=== PATIENT | female | born 2000 | race Hispanic/Latino ===

== ENCOUNTER 2021-12-03 15:23 | Emergency (ER) | payer OTHER, BC, SELFPAY ==
--- NOTE | ~2021-12-03 | XR_ITS ---
EXAMINATION: XR abdomen/kub 1V DATE: 12/03/2021 17:31 INDICATION: Abdominal distention. TECHNIQUE: A supine view of the abdomen on 2 radiographs was obtained. COMPARISON: None. FINDINGS: There are no dilated loops of bowel. There is a moderate volume of stool in the colon. Ther e is a 3 mm stone in right kidney. IMPRESSION: 1. Normal bowel gas pattern. 2. 3 mm right kidney stone. Reviewed, dictated and finalized at location A.
[2021-12-03 15:26] VITALS: BP 163/91; PULSE 95; RESP 20; TEMP 36.6; O2SAT 98
[2021-12-03 15:41] LABS: Hematocrit 42.5 % (37.0-47.0); Hemoglobin 14.1 g/dL (12.0-15.0); Mean Corpuscular HGB Conc 33.2 g/dl (32-36); Mean Corpuscular Hemoglobin 30.6 pg (26-34); Mean Corpuscular Volume 92.2 fl (80-100); Platelet Count Result 305 k/mm3 (150-375); Red Blood Count 4.61 M/mm3 (4.2-5.4); Red Cell Distribution Width 12.6 % (11.5-14.5); White Blood Count 10.6 K/mm3 (4.5-10.0)
[2021-12-03 15:48] LABS: Add Urine Microscopic? YES; Appearance Urine Clear (Clear); Bacteria Urine Trace /hpf; Bilirubin Urine Negative (Negative); Blood Urine 1+ (Negative); Color Urine Straw (Yellow); Glucose Urine UA Negative (Negative); Ketones Urine Negative (Negative); Leukocyte Esterase Ur Negative LEU/UL (Negative); Mucus Urine Rare /lpf; Nitrate Urine Negative (Negative); Protein Urine Negative (Negative); RBC Urine 0-2 /hpf (0-2); Squamous Epithelial Cell Urine Few /hpf (Few); Urobilinogen Urine Negative mg/dL (<2.0); WBC Urine 0-3 /hpf
[2021-12-03 15:50] LABS: Alanine Aminotransferase 31 U/L (6-35); Albumin Level 4.5 g/dL (3.5-5.1); Alkaline Phosphatase 86 U/L (38-126); Anion Gap 13 mmol/L (8-16); Aspartate Amino Transferase 28 U/L (14-36); Bilirubin,Total 0.5 mg/dL (0.2-1.3); Blood Urea Nitrogen 10 mg/dL (7-17); Calcium 8.9 mg/dL (8.4-10.2); Carbon Dioxide 22 mmol/L (22-30); Chloride 104 mmol/L (98-107); Estimated CRCL calculation 172 ml/min; Estimated Glomerular Filt Rate > 60; Glucose 177 mg/dL (65-110); Lipase 116 U/L (23-300); Sodium 139 mmol/L (137-145)
[2021-12-03 15:56] LABS: Specific Grav Ur 1.004 (1.001-1.035)
--- NOTE | 2021-12-03 16:14 | ED.GENADULT ---
HPI - General Adult General Chief complaint: MILL TENDER Stated complaint: abd pain Time Seen by Provider: 12/03/21 15:56 History of Present Illness HPI narrative: 21-year-old female with no medical problems presents to the emergency room for quivery: . Patient states that she has been experiencing lower abdominal spasming intermittently since 7:00 this morning. Patient called her primary care physician and she was told to come in because she might be having an ectopic . Patient's last menstrual cycle was 2 weeks ago. Denies any vaginal bleeding. Denies back pain. To go home this morning and it was negative. Patient denies nausea, vomiting, diarrhea or constipation. Denies fevers denies concerns or STIs. Related Data Home Medications Medication Instructions Recorded Confirmed bupropion HCl 150 mg tablet,12 hr 150 mg PO DAILY 03/02/21 sustained-release (Wellbutrin SR) metformin 500 mg tablet 500 mg PO BID 10/27/21 semaglutide 1 mg/dose (4 mg/3 mL) 1 mg subcut WEEKLY 10/27/21 subcutaneous pen injector (Ozempic) Allergies Allergy/AdvReac Type Severity Reaction Status Date / Time No Known Allergies Allergy Verified 10/27/21 08:48 Review of Systems Review of Systems: CONSTITUTIONAL: Denies fever, chills, or sweats. EYES: Denies visual changes, redness, or discharge. ENT: Denies rhinorrhea, congestion, sore throat, or otalgia. CARDIOVASCULAR: Denies chest pain, palpitations, or edema. RESPIRATORY: Denies cough or dyspnea. GASTROINTESTINAL: Reports abdominal spasming GENITOURINARY: Denies dysuria or hematuria. SKIN: Denies rash or itching. MUSCULOSKELETAL: Denies back pain, joint pain, or myalgia. NEUROLOGIC: Denies headache, numbness, dizziness, or weakness. PSYCHIATRIC: Denies anxiety or depression. 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 HEAD: Normocephalic, atraumatic. EYES: Conjunctivae normal, PERRLA and EOMI. CHEST: Clear to auscultation. No respiratory distress. No wheezes rales or rhonchi. HEART: Regular rate and rhythm. No murmur heard. Normal peripheral pulses. ABDOMEN: Soft, nontender, nondistended, normal active bowel sounds. BACK: No CVA tenderness EXTREMITIES: Normal range of motion. No edema. No clubbing or cyanosis SKIN: Warm, dry, no rash. No noted wounds NEURO: No focal deficits. Alert and oriented x3. MAEW. CN's II-XI intact bilaterally, normal gait PSYCH: Cooperative. Normal mood and affect. Course Vital Signs Vital signs: Vital Signs Temperature 36.6 C 12/03/21 15:26 Pulse Rate 95 12/03/21 15:26 Respiratory Rate 20 12/03/21 15:26 Blood Pressure 163/91 H 12/03/21 15:26 Pulse Oximetry 98 12/03/21 15:26 Oxygen Delivery Room Air 12/03/21 15:26 Temperature 36.6 C 12/03/21 15:26 Pulse Rate 95 12/03/21 15:26 Respiratory Rate 20 12/03/21 15:26 Blood Pressure 163/91 H 12/03/21 15:26 Pulse Oximetry 98 12/03/21 15:26 Oxygen Delivery Room Air 12/03/21 15:26 Medical Decision Making [place]
[2021-12-03 16:58] LABS: Beta HCG Quantitative < 2.39 mIU/ML
[2021-12-03 18:09] VITALS: BP 125/71; PULSE 76; RESP 18; O2SAT 100
== END 2021-12-03 18:10 | disposition home or self-care (01) ==
PROVIDERS: Emergency Medicine; Emergency Provider Nurse Practitioner Family; PCP Nurse Practitioner Family
DX: K59.00 Constipation, unspecified (principal); Z97.5 Presence of (intrauterine) contraceptive device; E28.2 Polycystic ovarian syndrome; N20.0 Calculus of kidney; Z79.84 Long term (current) use of oral hypoglycemic drugs; Z79.85 Long-term (current) use of injectable non-insulin antidiabetic drugs
CPT/HCPCS: 36415; 74018; 80053; 81001; 81025; 83690; 84702; 85025; 99283